=== PATIENT | male | born 1955 | race Caucasian/White ===

== ENCOUNTER 2018-10-21 17:02 | Observation (INO) ==
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
--- NOTE | 2018-10-21 17:18 | Emergency Department Note ---
Disposition Clinical Impression: Ventricular bigeminy Chest pain Qualifiers: Chest pain type: unspecified Qualified Code(s): R07.9 - Chest pain, unspecified Disposition: Admitted As Inpatient Condition: Undetermined Forms: ED Satisfaction Letter Time of Disposition: 20:09 General Adult HPI - General Stated complaint: chest pain Time Seen by Provider: 10/21/18 17:08 - Related Data Home Medications Medication Instructions Recorded Confirmed Amlodipine Besylate/Benazepril 1 each PO DAILY 09/15/17 [Lotrel 10-20 mg Capsule] Triamterene/HCTZ 37.5/25mg 1 each PO DAILY 09/15/17 [Dyazide] Venlafaxine HCl [Venlafaxine HCl 150 mg PO DAILY 09/15/17 ER] lamoTRIgine [Lamotrigine] 200 mg PO DAILY 09/15/17 Allergies Allergy/AdvReac Type Severity Reaction Status Date / Time No Known Allergies Allergy Verified 09/15/17 09:39 Course Vital Signs Temperature 98.0 F 10/21/18 17:18 Pulse Rate 78 10/21/18 17:18 Respiratory Rate 17 10/21/18 17:18 Blood Pressure 188/102 10/21/18 17:18 O2 Sat by Pulse Oximetry 97 10/21/18 17:18 Temperature 98.2 F 10/21/18 20:06 Pulse Rate 78 10/21/18 20:06 Respiratory Rate 16 10/21/18 20:06 Blood Pressure 135/86 10/21/18 20:06 O2 Sat by Pulse Oximetry 98 10/21/18 20:06 Oxygen Delivery Oxygen Delivery Room Air Medical Decision Making - Lab Data Result diagrams: 10/21/18 17:27 10/21/18 17:27 Lab Results 10/21/18 10/21/18 10/21/18 Range/Units 17:27 17:27 17:27 WBC 9.7 (4.3-11.1) K/mcL RBC 5.98 H (4.19-5.50) M/mcL Hgb 17.0 H (12.9-16.9) g/dL Hct 49.8 (37.5-50.1) % MCV 83.3 (83.0-100.0) fL MCH 28.4 (28.0-33.3) pg MCHC 34.1 (31.6-35.5) g/dL RDW 12.8 (11.5-14.5) % Plt Count 218 (140-400) K/mcL MPV 9.0 L (9.4-12.4) fL Immature Gran % 0.4 (0-4) % Seg Neutrophils % 67.1 % Lymphocytes % 23.3 % Monocytes % 7.0 % Eosinophils % 1.6 % Basophils % 0.6 % Neutrophils # 6.5 (1.6-8.9) K/mcL Lymphocytes # 2.3 (0.6-4.6) K/mcL Monocytes # 0.7 (0.0-1.3) K/mcL Eosinophils # 0.2 (0.0-0.6) K/mcL Basophils # 0.1 (0.0-0.2) K/mcL PT 12.5 H (9.4-12.1) Seconds INR 1.1 APTT 34.3 (26.0-36.0) Seconds Sodium 140 (136-145) mEq/L Potassium 4.0 (3.5-5.1) mEq/L Chloride 104 (98-107) mEq/L Carbon Dioxide 27 (23-29) mEq/L BUN 21 (8-23) mg/dL Creatinine 1.01 (0.70-1.30) mg/dL Est GFR ( Amer) > 60 (> 60) Est GFR (Non-Af Amer) > 60 (> 60) BUN/Creatinine Ratio 21 (6-26) Glucose 96 (70-105) mg/dL Calculated Osmolality 293 (280-300) Calcium 9.8 (8.6-10.3) mg/dL Troponin I < 0.03 (< 0.04) ng/mL Attestation Statement - Attestation Attestation: I examined this patient and my medical decision-making was reviewed with the Julee salazar Physician. I agree with the documented findings, disposition and treatment plan as described except to the extent set forth below. Patient presents to the ED with chief complaint of intermittent episodes of lightheadedness, diaphoresis, low heart rate. Patient has not been feeling well. He bought a pulse ox. When he checked his heart rate today when he was not feeling well his heart rate was in the 30s. He states he feels better at this time. On our exam he is in no acute distress. His heart rate is in the 60s to 70s. Lungs are clear. Plan. Cardiac workup. He is having some associated chest pain as well. No ischemic changes on his EKG. Likely admission. EKG reviewed with the resident. Sarah Beth with no signs of ischemia. Unchanged from prior. Patient's workup is unremarkable. He is admitted for further cardiac workup. Chest X-Ray 10/21/18 17:17 IMPRESSION: Normal chest. D/ / 10/21/2018 18:54:24 Dennis Knig MD / [email or web address] Interpreting Provider: Dennis King MD
[2018-10-21] MEDS ORDERED: Aspirin 81 MG TAB.CHEW PO ONE (17:38)
[2018-10-21 17:40] LABS: Basophils # 0.1 K/mcL (0.0-0.2); Basophils % 0.6 %; Eosinophils # 0.2 K/mcL (0.0-0.6); Eosinophils % 1.6 %; Hematocrit 49.8 % (37.5-50.1); Immature Granulocytes % 0.4 % (0-4); Lymphocytes # 2.3 K/mcL (0.6-4.6); Lymphocytes % 23.3 %; Mean Corpuscular HGB Conc 34.1 g/dL (31.6-35.5); Mean Corpuscular Hemoglobin 28.4 pg (28.0-33.3); Mean Corpuscular Volume 83.3 fL (83.0-100.0); Monocytes # 0.7 K/mcL (0.0-1.3); Neutrophils # 6.5 K/mcL (1.6-8.9); Platelet Count 218 K/mcL (140-400); Red Blood Count 5.98 M/mcL (4.19-5.50); Red Cell Distribution Width 12.8 % (11.5-14.5); Segmented Neutrophils % 67.1 %; White Blood Count 9.7 K/mcL (4.3-11.1)
[2018-10-21 17:53] LABS: INR 1.1; Prothrombin Time 12.5 Seconds (9.4-12.1)
[2018-10-21 17:55] LABS: Activated Partial Thrombo Time 34.3 Seconds (26.0-36.0)
[2018-10-21 18:01] LABS: BUN/Creatinine Ratio 21 (6-26); Blood Urea Nitrogen 21 mg/dL (8-23); Calcium 9.8 mg/dL (8.6-10.3); Carbon Dioxide 27 mEq/L (23-29); Chloride 104 mEq/L (98-107); Glucose 96 mg/dL (70-105); Osmolality,Calculated 293 (280-300); Sodium 140 mEq/L (136-145); Troponin I < 0.03 ng/mL (< 0.04); eGFR For African Americans > 60 (> 60); eGFR For Non-African Americans > 60 (> 60)
--- NOTE | 2018-10-21 21:56 | Internal Med History&Physical ---
Date of Encounter: 10/21/18 Time of Encounter: 21:51 Internal Medicine - H&P: HPI Chief complaint: Chest pain History of present illness: Mr. Nichole is a 62 year old male with a past medical history of hypertension and depression who presented to the ED with a chief complaint of chest pain. Pain is been ongoing for the past 2 days, described as substernal, "as if something sitting on my chest" that is nonradiating associated with nausea and lightheadedness. Patient reports taking 2 ibuprofen which helped somewhat. However, pain continued to wax and wane over the next 2 days. Patient ultimately came in for evaluation at the request of his . Denies any prev ious history of heart disease. Patient had stress test in July 2017 which was negative for ischemia. Patient states that he recently purchased a pulse oximeter and reports a heart rate intermittently in the 30s at times while checking it at home. denies any recent illness. Patient does dip tobacco and has been doing so for the past 3-4 years. Family history of congestive heart failure in his mother. Patient denies any recent illness, orthopnea or lower extremity edema. On arrival, patient was afebrile, mildly hypertensivewith initial blood pressure of 188/102 Laboratory workup was unremarkable. With no previous EKG for comparison. Initial troponin was negative. EKG shows ventricular bigeminy as compared to previous EKGs. She received loading dose of aspirin. Patient currently chest pain-free. Past Med Surg Social Fam HX - Past Medical History Medical history: hypertension Additional medical history: S[place] Psychiatric history: depression - Past Surgical History Surgical History: tonsillectomy - Social History Smoking Status: Never smoker Smokeless Tobacco Status: Yes (once a week or so) Alcohol use: none Drug use: none - Family History Mother Living Status: Age at : 68 Cause of : chf Hx Family Cardiac Disorders: Yes Father Living Status: Age at : 78 Hx Family Cancer: Yes (kidney , spleen, lung) Hx Family Neurologic Disorders: Yes (brain anneurysm) Brother Age at : 47 Cause of : esopogeal cancer Hx Family Cancer: Yes Sister Living Status: Age at : 53 Cause of : drugs Internal Medicine - H&P: Meds Triamterene/HCTZ 37.5/25mg [Dyazide] 1 each PO DAILY 09/15/17 [History] Venlafaxine HCl [Venlafaxine HCl ER] 150 mg PO DAILY 09/15/17 [History] Amlodipine Besylate/Benazepril [Lotrel 10-40 mg Capsule] 1 cap PO DAILY 10/22/18 [History] Aspirin [Lo-Dose Aspirin EC] 81 mg PO DAILY 10/22/18 [History] Allergy/AdvReac Type Severity Reaction Status Date / Time No Known Allergies Allergy Verified 09/15/17 09:39 All Systems PM: A 10-system review of systems was performed and is negative for pertinent findings except as documented above in the HPI. - Constitutional Constitutional: no chills, no fever(s), no night sweats - EENT Eyes: no change in vision, no discharge, no pain, no photophobia Ears: no ear discharge, no ear pain, no tinnitus Nose, mouth and throat: no dysphagia, no nasal discharge, no neck pain, no sore throat - Cardiovascular Cardiovascular ROS IM: no chest pain, no diaphoresis, no dyspnea, no lightheadedness, no palpitations, no syncope - Respiratory Respiratory: no cough, no dyspnea, no wheezing, no excessive phlegm production - Gastrointestinal Gastrointestinal: no abdominal pain, no diarrhea, no hematemesis, no hematochezia, no melena, no nausea, no vomiting - Musculoskeletal Musculoskeletal ROS IM: no numbness, no tingling - Integumentary Integumentary IM: no rash, no unusual bruising - Neurological Neurological ROS: no confusion, no convulsions, no focal weakness, no numbness, no tingling, no tremor(s) - Hematologic/Lymphatic Hematologic/Lymphatic: no easy bruising - Constitutional Vitals: Temp Pulse Resp BP Pulse Ox 98.2 F 78 16 135/86 98 10/21/18 20:06 10/21/18 20:06 10/21/18 20:06 10/21/18 20:06 10/21/18 20:06 Exam: General: Alert and oriented 3 Skin:Normal color, no rash, no lesions. HEENT:EOM, pupils equal, round and reactive. Cardiovascular:Normal S1 & S2, no rubs, murmurs or gallops. No JVD. Pulse regular. Lungs:Normal breath sounds, no wheezes or crackles. Abdomen:Soft, non-tender, no rigidity. Extremities:No deformity, no edema or tenderness, no joint swelling or clubbing. Neurological:Normal cognition and motor skills. Pulses:Carotid and radial pulses normal +2. Rest of the physical exam is non contributory Internal Med - H&P Results - Labs CBC & Chem 7: 10/22/18 04:24 10/22/18 04:24 Labs: Short CBC 10/21/18 Range/Units 17:27 WBC 9.7 (4.3-11.1) K/mcL Hgb 17.0 H (12.9-16.9) g/dL Hct 49.8 (37.5-50.1) % Plt Count 218 (140-400) K/mcL Neutrophils # 6.5 (1.6-8.9) K/mcL BMP 10/21/18 17:27 Sodium 140 Potassium 4.0 Chloride 104 Carbon Dioxide 27 BUN 21 Creatinine 1.01 Glucose 96 Calcium 9.8 Cardiac Enzymes 10/21/18 Range/Units 17:27 Troponin I < 0.03 (< 0.04) ng/mL - Impressions ITS Impressions Chest X-Ray 10/21/18 17:17 IMPRESSION: Normal chest. D/ / 10/21/2018 18:54:24 Dennis King MD / [email or web address] Interpreting Provider: Dennis King MD - Assessment and Plan (1) Chest pain Current Visit: Yes Status: Acute Assessment and plan: Patient presenting with atypical chest pain. No prior history of coronary artery disease. Previous stress test approximately one year ago was negative for ischemia. Risk factors include age, obesity and family history. Patient does report dipping tobacco for the past 3-5 years, but no prior smoking history. Initial troponin negative. EKG showing sinus rhythm with ventricular bigeminy. No electrolyte abnormalities noted. Patient received loading dose of aspirin -Trend troponin -Telemetry -Check TSH, A1c, lipid panel -Echocardiogram -Nuclear stress test if troponins remain negative -Cardiology consult Qualifiers: Chest pain type: unspecified Qualified Code(s): R07.9 - Chest pain, unspecified (2) Hypertension Current Visit: Yes Status: Acute Assessment and plan: Blood pressure initially elevated. Has gradually trended down. -Resume home antihypertensive -We will continue to monitor Qualifiers: Hypertension type: essential hypertension Qualified Code(s): I10 - Essential (primary) hypertension (3) Ventricular bigeminy Current Visit: Yes Status: Acute Assessment and plan: See above (4) DVT prophylaxis Current Visit: Yes Status: Acute Assessment and plan: Subcutaneous heparin - Time Spent With Patient Total time spent is greater than 50% in coordination of care (as documented) at patient's floor/unit and/or counseling patient:
[2018-10-21] MEDS ORDERED: Nitroglycerin 0.4 MG TAB.SUBL SL PRN (21:57)
[2018-10-21 23:08] LABS: Magnesium 2.3 mg/dL (1.6-2.6)
[2018-10-22 05:06] LABS: Basophils # 0.1 K/mcL (0.0-0.2); Basophils % 0.7 %; Eosinophils # 0.2 K/mcL (0.0-0.6); Eosinophils % 2.2 %; Hematocrit 45.5 % (37.5-50.1); Immature Granulocytes % 0.3 % (0-4); Lymphocytes # 2.8 K/mcL (0.6-4.6); Lymphocytes % 36.9 %; Mean Corpuscular HGB Conc 33.4 g/dL (31.6-35.5); Mean Corpuscular Hemoglobin 27.9 pg (28.0-33.3); Mean Corpuscular Volume 83.5 fL (83.0-100.0); Mean Platelet Volume 9.1 fL (9.4-12.4); Monocytes # 0.8 K/mcL (0.0-1.3); Monocytes % 10.6 %; Neutrophils # 3.8 K/mcL (1.6-8.9); Platelet Count 202 K/mcL (140-400); Red Blood Count 5.45 M/mcL (4.19-5.50); Red Cell Distribution Width 13.2 % (11.5-14.5); Segmented Neutrophils % 49.3 %; White Blood Count 7.6 K/mcL (4.3-11.1)
[2018-10-22 05:10] LABS: Hemoglobin 15.2 g/dL (12.9-16.9)
[2018-10-22 05:27] LABS: Alanine Aminotransferase 14 Units/L (7-52); Albumin/Globulin Ratio 1.7 (1.1-2.2); Alkaline Phosphatase 84 Units/L (34-104); Aspartate Amino Transferase 13 Units/L (13-39); BUN/Creatinine Ratio 23 (6-26); Bilirubin,Total 0.8 mg/dL (0.3-1.0); Blood Urea Nitrogen 21 mg/dL (8-23); Carbon Dioxide 24 mEq/L (23-29); Chloride 106 mEq/L (98-107); Chol/HDL Ratio 5.2 (0-4.9); Cholesterol 162 mg/dL (< 200); Globulin 2.3 g/dL (2.4-3.5); Glucose 105 mg/dL (70-105); HDL Cholesterol 31 mg/dL (40-59); LDL Cholesterol,Calculated 92 mg/dL (0-99); Osmolality,Calculated 291 (280-300); Sodium 139 mEq/L (136-145); Total Protein 6.3 g/dL (6.4-8.9); Triglycerides 194 mg/dL (< 150); eGFR For African Americans > 60 (> 60); eGFR For Non-African Americans > 60 (> 60)
[2018-10-22 05:39] LABS: Thyroid Stimulating Hormone 3.372 mcIU/mL (0.340-5.600)
[2018-10-22] MEDS: Nicotine 14 MG PATCH.TD24 TD SCH (07:50)
[2018-10-22 08:25] LABS: Estimated Average Glucose 120 mg/dl
[2018-10-22] MEDS ORDERED: Regadenoson 0.4 MG/5 ML SYRINGE IVP ONE (08:33)
[2018-10-22] MEDS ORDERED: Perflutren Lipid Microsphere 1.3 ML in 0.9 % Sodium Chloride 8.7 ML IVP ONE (10:37)
[2018-10-22] MEDS: Aspirin 81 MG TAB.CHEW PO SCH (13:07)
--- NOTE | 2018-10-22 16:12 | Internal Med Progress Note ---
Hospitalist Progress Note - Encounter Date of Encounter: 10/22/18 Time of Encounter: 16:10 - Subjective Interval History: Mr. Nichole is a 62 year old male with a past medical history of hypertension and depression who presented to the ED with a chief complaint of chest pain. Pain is been ongoing for the past 2 days, described as substernal, "as if something sitting on my chest" that is non radiating associated with nausea and lightheadedness. Patient had stress test in July 2017 which was negative for ischemia. Patient denies any recent illness, orthopnea or lower extremity edema. His initial troponin was negative. EKG shows ventricular bigeminy as compared to previous EKGs. He was admitted in the hospital and placed him on tele. He denied any active CP now. His serial trop were negative. - Exam Vitals: Temp Pulse Resp BP Pulse Ox 98.1 F 72 16 168/75 93 10/22/18 15:33 10/22/18 15:33 10/22/18 15:33 10/22/18 15:33 10/22/18 15:33 Exam: Gen: Alert, awake, Oriented to time,place and person Chest: Diminished breath sounds B/L, No wheezing, No crackles, No rales Heart: S1S2+ RRR No murmurs Abd: Soft, NT, BS +, No organomegaly Ext: No edema, pulses are palpable, No calf tenderness Neuro : No acute focal neuro deficits noticed Skin: No rash. - Assessment and Plan (1) Chest pain Current Visit: Yes Status: Acute Assessment and Plan: Negative serial trop x 3 No acute ischemic changes on EKG 2D Echo showed LVEF 60%, Indeterminate diastolic function Cont ASA and Lipitor cont close monitoring He is scheduled for 2 days nuclear stress test (2) Ventricular bigeminy Current Visit: Yes Status: Acute Assessment and Plan: TSH - 3.372 On tele he does have PVC's and occasional PAC's No BB for now he may need holter monitor if his stress test comes back normal (3) DVT prophylaxis Current Visit: Yes Status: Acute Assessment and Plan: Subcutaneous heparin (4) Hypertension Current Visit: Yes Status: Acute Assessment and Plan: fairly controlled started him on Lisinopril on IV Hdyralazine PRN for now - Time Spent with Patient Total time spent is greater than 50% in coordination of care (as documented) at patient's floor/unit and/or counseling patient: Internal Medicine: Result - Labs CBC & Chem 7: 10/22/18 04:24 10/22/18 04:24 Labs: Short CBC 10/21/18 10/22/18 Range/Units 17:27 04:24 WBC 9.7 7.6 (4.3-11.1) K/mcL Hgb 17.0 H 15.2 D (12.9-16.9) g/dL Hct 49.8 45.5 (37.5-50.1) % Plt Count 218 202 (140-400) K/mcL Neutrophils # 6.5 3.8 (1.6-8.9) K/mcL BMP 10/21/18 10/22/18 17:27 04:24 Sodium 140 139 Potassium 4.0 4.0 Chloride 104 106 Carbon Dioxide 27 24 BUN 21 21 Creatinine 1.01 0.93 Glucose 96 105 Calcium 9.8 9.0 Cardiac Enzymes 10/21/18 10/22/18 Range/Units 17:27 00:01 Troponin I < 0.03 < 0.03 (< 0.04) ng/mL Liver Function 10/22/18 Range/Units 04:24 Total Bilirubin 0.8 (0.3-1.0) mg/dL AST 13 (13-39) Units/L ALT 14 (7-52) Units/L Alkaline Phosphatase 84 (34-104) Units/L Albumin 4.0 (3.5-5.7) g/dL - ABG Interpretation ABG results: PT/INR, D-dimer PT 12.5 Seconds (9.4-12.1) H 10/21/18 17:27 - Impressions Impressions Chest X-Ray 10/21/18 17:17 IMPRESSION: Normal chest. D/ / 10/21/2018 18:54:24 Dennis King MD / [email or web address] Interpreting Provider: Dennis King MD Echocardiogram 10/22/18 21:57 Impressions: Sinus rhythm with PVCs. LVEF 60%. Indeterminate diastolic function. Definity echo contrast was used. Mild tricuspid regurgitation. No pulmonary hypertension. Left Ventricular Wall Motion: Rest Echo Findings All wall segments showed normal motion. Findings: Study Quality * Technically adequate exam. ECG Findings * Sinus rhythm with PVCs. Left Ventricle * LVEF 60%. * Normal LV chamber size, wall thickness and function. * Indeterminate diastolic function. * Definity echo contrast was used. Right Ventricle * Normal right ventricular structure and function. Left Atrium * Mildly dilated left atrium. Right Atrium * Normal right atrial size. Aortic Valve * No aortic regurgitation. * No aortic stenosis. * Aortic valve not well visualized. Mitral Valve * Mitral valve not well visualized. * No mitral stenosis. * Trace mitral regurgitation. Tricuspid Valve * Tricuspid valve not well visualized. * Mild tricuspid regurgitation. * Estimated RA pressure is 3 mmHg. * Estimated RVSP is 22 mmHg. * No pulmonary hypertension. Pulmonic Valve * Pulmonic valve is not well visualized. * No pulmonic stenosis. * No pulmonic regurgitation. Pulmonary Artery * Pulmonary artery not well visualized. Aorta * Normally sized aortic root. Pericardium * There is no pericardial effusion present. Interatrial Septum * No evidence of PFO by color Doppler. IVC * Normal IVC dimensions and inspiratory collapse. Consult Discharge Plan - Plan Referrals: NONE,PCP [Primary Care Provider] - (1) Chest pain Qualifiers: Chest pain type: unspecified Qualified Code(s): R07.9 - Chest pain, unspecified
[2018-10-22] MEDS: Lisinopril 20 MG TABLET PO SCH (17:04)
[2018-10-22] MEDS ORDERED: Melatonin 3 MG TABLET PO PRN (20:26)
[2018-10-23] MEDS: Nicotine 14 MG PATCH.TD24 TD SCH (00:47)
[2018-10-23] MEDS: Aspirin 81 MG TAB.CHEW PO SCH (09:32)
[2018-10-23] MEDS: Lisinopril 20 MG TABLET PO SCH (09:32)
--- NOTE | 2018-10-23 14:40 | Internal Med Progress Note ---
Hospitalist Progress Note - Encounter Date of Encounter: 10/23/18 Time of Encounter: 14:23 - Subjective Interval History: Patient was seen and examined at bedside. Patient underwent daily stress test which was negative for any ischemia or infarct discussed results with the patient who expressed concerns about his bradycardia-review of telemetry strip does show bradycardia with ventricular bigeminy. He does not appear to be symptomatic-however he states he has been experiencing chest pain at home Reviewed this with Dr. De Jesus as well as courtesy consult with Dr. Sims cardiology-Dr. Huynh recommending low-dose beta gerson-discussed treatment with the patient who verbalizes understanding - Exam Vitals: Temp Pulse Resp BP Pulse Ox 98.1 F 32 16 156/59 97 10/23/18 12:17 10/23/18 12:17 10/23/18 12:17 10/23/18 12:10/23/18 12:17 Exam: General: Alert and oriented 3 Skin:Normal color, no rash, no lesions. HEENT:EOM, pupils equal, round and reactive. Cardiovascular:Normal S1 & S2, no rubs, murmurs or gallops. No JVD. Pulse regular. Lungs:Normal breath sounds, no wheezes or crackles. Abdomen:Soft, non-tender, no rigidity. Extremities:No deformity, no edema or tenderness, no joint swelling or clubbing. Neurological:Normal cognition and motor skills. Pulses:Carotid and radial pulses normal +2. Rest of the physical exam is non contributory - Assessment and Plan (1) Chest pain Current Visit: Yes Status: Acute Assessment and Plan: Patient presenting with atypical chest pain. No prior history of coronary artery disease. Previous stress test approximately one year ago was negative for ischemia. Risk factors include age, obesity and family history. Patient does report dipping tobacco for the past 3-5 years, but no prior smoking history. Initial troponin negative. EKG showing sinus rhythm with ventricular bigeminy. No electrolyte abnormalities noted. Patient received loading dose of aspirin -Trend troponin -Telemetry -Check TSH, A1c, lipid panel -Echocardiogram -Nuclear stress test if troponins remain negative -Cardiology consult 10/23 Currently chest pain-free continues to experience sinus rhythm with ventricular bigeminy TSH within normal limits Cardiac echo Impressions: Sinus rhythm with PVCs. LVEF 60%. Indeterminate diastolic function. Definity echo contrast was used. Mild tricuspid regurgitation. No pulmonary hypertension. Nuclear stress test Impression: Pharmacologic stress ECG is negative for ischemia at level of heart rate achieved. Gated EF = 64%. Small sized, mild intensity, fixed apical inferior perfusion defect with normal wall motion. These findings are suggestive of artifact. Perfusion imaging was negative for ischemia or infarct. No electrolyte abnormalities (2) Ventricular bigeminy Current Visit: Yes Status: Acute Assessment and Plan: Discussed with cardiology we will start a low-dose beta gerson and monitor overnight patient in agreement a treatment plan. To have a Holter monitor as an outpatient follow-up with cardiology (3) DVT prophylaxis Current Visit: Yes Status: Acute Assessment and Plan: Subcutaneous heparin (4) Hypertension Current Visit: Yes Status: Acute Assessment and Plan: Blood pressure initially elevated. Has gradually trended down. -Resume home antihypertensive -We will continue to monitor - Time Spent with Patient Total time spent is greater than 50% in coordination of care (as documented) at patient's floor/unit and/or counseling patient: Internal Medicine: Result - Labs CBC & Chem 7: 10/22/18 04:24 10/22/18 04:24 - ABG Interpretation ABG results: PT/INR, D-dimer PT 12.5 Seconds (9.4-12.1) H 10/21/18 17:27 - Impressions Impressions Echocardiogram 10/22/18 21:57 Impressions: Sinus rhythm with PVCs. LVEF 60%. Indeterminate diastolic function. Definity echo contrast was used. Mild tricuspid regurgitation. No pulmonary hypertension. Left Ventricular Wall Motion: Rest Echo Findings All wall segments showed normal motion. Findings: Study Quality * Technically adequate exam. ECG Findings * Sinus rhythm with PVCs. Left Ventricle * LVEF 60%. * Normal LV chamber size, wall thickness and function. * Indeterminate diastolic function. * Definity echo contrast was used. Right Ventricle * Normal right ventricular structure and function. Left Atrium * Mildly dilated left atrium. Right Atrium * Normal right atrial size. Aortic Valve * No aortic regurgitation. * No aortic stenosis. * Aortic valve not well visualized. Mitral Valve * Mitral valve not well visualized. * No mitral stenosis. * Trace mitral regurgitation. Tricuspid Valve * Tricuspid valve not well visualized. * Mild tricuspid regurgitation. * Estimated RA pressure is 3 mmHg. * Estimated RVSP is 22 mmHg. * No pulmonary hypertension. Pulmonic Valve * Pulmonic valve is not well visualized. * No pulmonic stenosis. * No pulmonic regurgitation. Pulmonary Artery * Pulmonary artery not well visualized. Aorta * Normally sized aortic root. Pericardium * There is no pericardial effusion present. Interatrial Septum * No evidence of PFO by color Doppler. IVC * Normal IVC dimensions and inspiratory collapse. Consult Discharge Plan - Plan Referrals: NONE,PCP [Primary Care Provider] - (1) Chest pain Qualifiers: Chest pain type: unspecified Qualified Code(s): R07.9 - Chest pain, unspecified (4) Hypertension Qualifiers: Hypertension type: essential hypertension Qualified Code(s): I10 - Essential (primary) hypertension
--- NOTE | 2018-10-23 17:47 | Discharge Summary ---
- NOTES TO OUTPATIENT PROVIDER Notes to Outpatient Provider: The right cardiac stress test is negative for any ischemia or infarct initiated on beta gerson for ventricular bigeminy. We will follow up with cardiology. Holter monitor Date of Encounter: 10/23/18 Time of Encounter: 17:42 - Discharge Diagnosis (1) Chest pain Priority: Primary Status: Acute Qualifiers: Chest pain type: unspecified Qualified Code(s): R07.9 - Chest pain, unspecified (2) Ventricular bigeminy Priority: Secondary Status: Acute (3) Hypertension Priority: Secondary Status: Acute Qualifiers: Hypertension type: essential hypertension Qualified Code(s): I10 - Essential (primary) hypertension Hospital course: Mr. Nichole is a 62 year old male past medical history of hypertension depression presented to [facility] ED with chief complaints of chest pain has been present 2 days prior to presentation. Describes pain substernal as if something sitting on his chest nonradiating associated with nausea and lightheadedness. The pain has waxed and waned over the past 2 days. Denies any past cardiac history. Patient does report that he recently purchased a pulse oximeter Endocet heart rate intermittently will be in the 30s. He also does admit to history of obstructive sleep apnea however is not compliant. Cardiac workup was completed EKG did show sinus bradycardia with ventricular bigeminy cardiac echo with preserved EF patient underwent today stress test which was negative for any ischemia or infarct. During admission patient did have episodes of heart rate in the 30s during ventricular bigeminy. No chest pain voiced -asymptomatic. Discussed with cardiology recommending low-dose beta gerson. Patient was initiated on 12.5 mg of metoprolol we will monitor closely patient will follow up with cardiology as outpatient-also will have Holter monitor. If no arrhythmias and if the patient does not display any symptomatic bradycardia overnight she may be discharged home in the a.m. - Time Spent with Patient Total time spent providing and/or coordinating discharge services: - Discharge Medications Prescriptions: New Metoprolol [Lopressor] 12.5 mg PO BID 30 Days #15 tablet Continued Amlodipine Besylate/Benazepril [Lotrel 10-40 mg Capsule] 1 cap PO DAILY Aspirin [Lo-Dose Aspirin EC] 81 mg PO DAILY Triamterene/HCTZ 37.5/25mg [Dyazide] 1 each PO DAILY Venlafaxine HCl [Venlafaxine HCl ER] 150 mg PO DAILY Home Medications: Triamterene/HCTZ 37.5/25mg [Dyazide] 1 each PO DAILY 09/15/17 [History] Venlafaxine HCl [Venlafaxine HCl ER] 150 mg PO DAILY 09/15/17 [History] Amlodipine Besylate/Benazepril [Lotrel 10-40 mg Capsule] 1 cap PO DAILY 10/22/18 [History] Aspirin [Lo-Dose Aspirin EC] 81 mg PO DAILY 10/22/18 [History] Metoprolol [Lopressor] 12.5 mg PO BID 30 Days #15 tablet 10/23/18 [Rx] Allergies/Adverse Reactions: Allergy/AdvReac Type Severity Reaction Status Date / Time No Known Allergies Allergy Verified 09/15/17 09:39 Date of admission: 10/21/18 20:28 Primary care physician: PCP NONE Discharging clinician: Shikha Silva Anticipated date of discharge: 10/23/18 - Constitutional Vitals: Temp Pulse Resp BP Pulse Ox 97.9 F 49 16 143/90 96 10/23/18 15:39 10/23/18 15:39 10/23/18 15:39 10/23/18 15:39 10/23/18 15:39 Exam: General: Alert and oriented 3 Skin:Normal color, no rash, no lesions. HEENT:EOM, pupils equal, round and reactive. Cardiovascular:Normal S1 & S2, no rubs, murmurs or gallops. No JVD. Pulse regular. Lungs:Normal breath sounds, no wheezes or crackles. Abdomen:Soft, non-tender, no rigidity. Extremities:No deformity, no edema or tenderness, no joint swelling or clubbing. Neurological:Normal cognition and motor skills. Pulses:Carotid and radial pulses normal +2. Rest of the physical exam is non contributory - Patient Status Disposition: Home Health Service Condition: Good Functional capacity at discharge: independent ambulation - Discharge Instructions Instructions: Chest Pain (DC) Follow Up With: NONE,PCP [Primary Care Provider] - Additional Instructions: Patient will need to follow-up with cardiology - Diet and Activity Activity: increase activity as tolerated Diet: low fat, low cholesterol, low salt diet
[2018-10-24] MEDS: Nicotine 14 MG PATCH.TD24 TD SCH (06:07)
[2018-10-24 08:08] VITALS: BP 138/48
--- NOTE | 2018-10-24 09:12 | Event Note ---
Date of Encounter: 10/24/18 Time of Encounter: 09:10 - Cardiology Event Note Order placed for 48 hour Holter to be applied at discharge for asymptomatic PVCs and bigeminy. Patient currently declining beta gerson. Follow-up with cardiology arranged as outpatient.
[2018-10-24] MEDS: Aspirin 81 MG TAB.CHEW PO SCH (09:17)
[2018-10-24] MEDS: Lisinopril 20 MG TABLET PO SCH (09:17)
--- NOTE | 2018-10-24 09:25 | Internal Med Progress Note ---
Hospitalist Progress Note - Encounter Date of Encounter: 10/24/18 Time of Encounter: 09:22 - Subjective Interval History: Seen and examined at bedside. Patient is new to me, information obtained from chart review and patient report. Says he feels back to baseline elected to go home today. No chest pain, no shortness of breath. Denied palpitations. - Exam Vitals: Temp Pulse Resp BP Pulse Ox 98.2 F 48 16 138/48 97 10/24/18 08:00 10/24/18 08:00 10/24/18 08:00 10/24/18 08:00 10/24/18 08:00 Exam: General: Alert and oriented 3 Skin:Normal color, no rash, no lesions. HEENT:EOM, pupils equal, round and reactive. Cardiovascular:Normal S1 & S2, no rubs, murmurs or gallops. No JVD. Pulse regular. Lungs:Normal breath sounds, no wheezes or crackles. Abdomen:Soft, non-tender, no rigidity. Extremities:No deformity, no edema or tenderness, no joint swelling or clubbing. Neurological:Normal cognition and motor skills. Pulses:Carotid and radial pulses normal +2. Rest of the physical exam is non contributory - Assessment and Plan (1) Chest pain Current Visit: Yes Status: Acute Assessment and Plan: presented with chest pain. ACS ruled out with negative serial troponin. EKG without acute ST changes. TTE showed EF 60% and PVCs. No wall motion abnormalities. Patient underwent a stress test that showed a small, mild fixed defect suggestive artifact. Chest pain resolved at time of discharge. He was advised to follow-up with his PCP. Also advised return to ER if chest pain or SOB recurs. (2) Ventricular bigeminy Current Visit: Yes Status: Acute Assessment and Plan: noted on telemetry. BB trialed with subsequent bradycardia and patient now refusing BB. Order placed for 48 hour Holter monitor to be applied discharged a symptomatically PVCs and bigeminy. Patient continues to decline BB. Follow-up with cardiology outpatient. (3) Hypertension Current Visit: Yes Status: Acute Assessment and Plan: per hx. BP controlled. Cont home BP medications - Time Spent with Patient Total time spent is greater than 50% in coordination of care (as documented) at patient's floor/unit and/or counseling patient: Internal Medicine: Result - Labs CBC & Chem 7: 08/02/19 04:24 10/22/18 04:24 - ABG Interpretation ABG results: PT/INR, D-dimer PT 12.5 Seconds (9.4-12.1) H 10/21/18 17:27 Consult Discharge Plan - Plan Instructions: Chest Pain (DC) Additional Instructions: Patient will need to follow-up with cardiology Referrals: NONE,PCP [Primary Care Provider] - (1) Chest pain Qualifiers: Chest pain type: unspecified Qualified Code(s): R07.9 - Chest pain, unspecified (3) Hypertension Qualifiers: Hypertension type: essential hypertension Qualified Code(s): I10 - Essential (primary) hypertension
[2018-10-24 11:05] LABS: Basophils % 0.5 %; Eosinophils # 0.2 K/mcL (0.0-0.6); Eosinophils % 2.3 %; Hematocrit 44.7 % (37.5-50.1); Immature Granulocytes % 0.3 % (0-4); Lymphocytes # 2.5 K/mcL (0.6-4.6); Lymphocytes % 31.3 %; Mean Corpuscular HGB Conc 33.6 g/dL (31.6-35.5); Mean Corpuscular Hemoglobin 28.2 pg (28.0-33.3); Mean Corpuscular Volume 84.2 fL (83.0-100.0); Mean Platelet Volume 9.5 fL (9.4-12.4); Monocytes # 0.6 K/mcL (0.0-1.3); Monocytes % 7.5 %; Neutrophils # 4.6 K/mcL (1.6-8.9); Platelet Count 197 K/mcL (140-400); Red Blood Count 5.31 M/mcL (4.19-5.50); Segmented Neutrophils % 58.1 %; White Blood Count 7.8 K/mcL (4.3-11.1)
[2018-10-24 11:24] LABS: BUN/Creatinine Ratio 20 (6-26); Blood Urea Nitrogen 21 mg/dL (8-23); Calcium 9.1 mg/dL (8.6-10.3); Carbon Dioxide 25 mEq/L (23-29); Chloride 105 mEq/L (98-107); Glucose 92 mg/dL (70-105); Osmolality,Calculated 291 (280-300); Potassium 4.3 mEq/L (3.5-5.1); Sodium 139 mEq/L (136-145); eGFR For African Americans > 60 (> 60); eGFR For Non-African Americans > 60 (> 60)
--- NOTE | 2018-10-25 12:57 | Electrocardiograph Report ---
[place] [id number] Test Date: 2018-10-21 Pat Name: Chuy Nichole Department: [id number] Room: 3B Gender: M Day Care Director: : 1955 Requested By: Caroline Ivan Order Number: [id number] Reading MD: Mat Valdez Measurements Intervals [place] Rate: 91 P: 52 CO: 153 QRS: 27 QRSD: 91 T: 80 QT: 392 QTc: 405 Interpretive Statements Sinus rhythm Ventricular bigeminy Baseline wander in lead(s) V3 Electronically Signed On 10-25-2018 12:55:07 EDT by Mat Valdez
--- NOTE | 2018-10-26 13:00 | Electrocardiograph Report ---
[place] [id number] Test Date: 2018-10-23 Pat Name: Chuy Nichole Department: 113 Room: 3B Gender: M Management Scientist: : 1955 Requested By: Shikha Silva Order Number: [id number] Reading MD: Diane Pritchett Measurements Intervals [place] Rate: 67 P: 34 [place]: 141 QRS: 10 QRSD: 96 T: 61 QT: 381 QTc: 396 Interpretive Statements SINUS RHYTHM WITH FREQUENT VENTRICULAR PREMATURE COMPLEXES ABNORMAL RHYTHM ECG INTERPRETATION BASED ON A DEFAULT AGE OF 40 YEARS Electronically Signed On 10-26-2018 12:58:13 EDT by Diane Pritchett
--- NOTE | 2018-10-28 14:57 | Electrocardiograph Report ---
[place] [id number] Test Date: 2018-10-23 Pat Name: Chuy Nichole Department: 113 Room: 3B Gender: M Building Official: : 1955 Requested By: Cori Gutierrez Order Number: [id number] Reading MD: Jon Pritchett Measurements Intervals [place] Rate: 61 P: 42 [place]: 148 QRS: 7 QRSD: 101 T: 63 QT: 396 QTc: 399 Interpretive Statements SINUS RHYTHM PVC Electronically Signed On 10-28-2018 14:55:50 EDT by Jon Pritchett
== END 2018-10-24 01:10 | disposition home health service (06) ==
LOC: EMEROOARM 17:02 → 3BNU 17:02 → SUATTDRO 20:28 → 3BNU 21:15
PROVIDERS: ADMIT Internal Medicine; ATTEND Family Medicine